=== PATIENT | female | born 1975 | race African-American/Black ===

== ENCOUNTER 2019-02-17 08:13 | Emergency (ER) | payer OTHER ==
[2019-02-17] MEDS ORDERED: KETOROLAC 30 MG/ML INJ ONE (08:37)
[2019-02-17] MEDS ORDERED: ONDANSETRON 4 MG/2 ML VIAL ONE (08:37)
[2019-02-17] MEDS ORDERED: MORPHINE 4 MG/ML SYR ONE ×2 (08:37→10:19)
[2019-02-17] MEDS ORDERED: NA CHLORIDE 0.9% 1,000 ML ONE (08:38)
[2019-02-17 09:12] LABS: Absolute Lymphocytes (CBC) 2.6 K/uL (0.7-4.9); Basophils % 0.6 % (0-1.3); Hematocrit 36.5 % (36.0-45.0); MPV 9.2 fL (7.6-11.3); RBC Red Blood Cell Count 4.17 M/uL (3.86-4.86)
--- NOTE | 2019-02-17 09:14 | RAD REPORT ---
EXAM DESCRIPTION: CT - Stone Protocol - 02/17/2019 8:58 am CLINICAL HISTORY: Abdominal pain. COMPARISON: None. TECHNIQUE: Computed axial tomography of the abdomen pelvis was obtained without oral or IV contrast. Lack of IV and oral contrast limits evaluation of solid organs, bowel, and vessels. Coronal reformat derek images were obtained and reviewed. All CT scans are performed using dose optimization technique as appropriate and may include automated exposure control or mA/KV adjustment according to patient size. FINDINGS: A renal calculus is not seen. An ureteral calculus is not noted. A bladder calculus is not present. The liver, spleen, pancreas and adrenals appear grossly normal There is no evidence of diverticulitis. The appendix appears normal Hysterectomy. Small umbilical hernia A 23 millimeter left ovarian cyst with small amount of free fluid Moderate amount of stool within the colon IMPRESSION: Negative for a genitourinary calculus A 23 millimeter left ovarian cyst with small amount of free fluid
--- NOTE | 2019-02-17 09:22 | ER ---
Nurse's Notes [facility] Name: Rhett Phillips Age: 43 yrs Sex: Female : 1975 Arrival Date: 02/17/2019 Time: 08:15 Bed 7 Private MD: Unknown, Unknown Diagnosis: Other ovarian cysts-23 mm left;Pelvic and perineal pain;Hypokalemia Presentation: 02/17 08:28 Presenting complaint: Patient states: LLQ pain and nausea, denies vomiting or diarrhea. ph Transition of care: patient was not received from another setting of care. Onset of symptoms was February 17, 2019. Risk Assessment: Do you want to hurt yourself or someone else? Patient reports no desire to harm self or others. Initial Sepsis Screen: Does the patient meet any 2 criteria? No. Patient's initial sepsis screen is negative. Does the patient have a suspected source of infection? No. Patient's initial sepsis screen is negative. Care prior to arrival: None. 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 - Social history:: Smoking status: Patient/guardian denies using tobacco. - Ebola Screening: : No symptoms or risks identified at this time. - Family history:: not pertinent. Screenin:30 Abuse screen: Denies threats or abuse. Denies injuries from another. Nutritional ph screening: No deficits noted. Tuberculosis screening: No symptoms or risk factors identified. Fall Risk None identified. Assessment: 08:30 General: Appears in no apparent distress. uncomfortable, slender, well groomed, ph Behavior is calm, cooperative, appropriate for age. Pain: Complains of pain in left lower quadrant. Neuro: Level of Consciousness is awake, alert, obeys commands, Oriented to person, place, time, situation. Cardiovascular: Capillary refill < 3 seconds in bilateral fingers Patient's skin is warm and dry. Respiratory: Airway is patent Respiratory effort is even, unlabored, Respiratory pattern is regular, symmetrical. GI: Abdomen is flat, non-distended, Reports lower abdominal pain, nausea. Derm: Skin is intact, is healthy with good turgor, Skin is pink, warm \T\ dry. Musculoskeletal: Circulation, motion, and sensation intact. Range of motion: intact in all extremities. 09:32 Reassessment: Patient appears in no apparent distress at this time. orders received for sg US and discharge, pt to wait in the dept for ultrasound prior to dc to home. 10:30 Reassessment: Patient appears in no apparent distress at this time. Patient and/or ph family updated on plan of care and expected duration. Pain level reassessed. Patient is alert, oriented x 3, equal unlabored respirations, skin warm/dry/pink. Pt resting comfortably, d/c pending US results, family at bedside. 11:51 Reassessment: Patient appears in no apparent distress at this time. Patient and/or ph family updated on plan of care and expected duration. Pain level reassessed. Patient is alert, oriented x 3, equal unlabored respirations, skin warm/dry/pink. Pt d/c home w/ family. Vital Signs: 08:29 BP 142 / 92; Pulse 92; Resp 18; Temp 98.0; Pulse Ox 100% on R/A; Weight 61.23 kg; ph 09:44 BP 121 / 71; Pulse 54; Resp 18; Pulse Ox 100% on R/A; Pain 6/10; ph 11:00 BP 118 / 78; Pulse 56; Resp 18; Pulse Ox 99% on R/A; ph 11:55 BP 127 / 89; Pulse 55; Resp 16; Temp 97.9; Pulse Ox 99% on R/A; ph ED Course: 08:15 Patient arrived in ED. ag5 08:15 Unknown, Unknown is Private Physician. ag5 08:17 Fabio Blankenship MD is Attending Physician. mckenzie 08:28 Nayeli Lopez, YADIRA is Primary Nurse. ph 08:29 Triage completed. ph 08:30 Patient has correct armband on for positive identification. Placed in gown. Bed in low ph position. Call light in reach. Side rails up X 1. Pulse ox on. NIBP on. Door closed. Noise minimized. Warm blanket given. 08:30 Arm band placed on Patient placed in an exam room, on a stretcher. ph 08:58 CT Stone Protocol In Process Unspecified. EDMS 09:20 Karissa Watt MD is Referral Physician. mckenzie 09:25 Lab(s) recollected, by me, sent to lab. sg 11:04 Transvaginal Study (probe) In Process Unspecified. EDMS 11:54 No provider procedures requiring assistance completed. IV discontinued, intact, ph bleeding controlled, No redness/swelling at site. Pressure dressing applied. Administered Medications: 08:44 Drug: NS 0.9% 1000 ml Route: IV; Rate: 1 bolus; Site: right antecubital; ph 11:55 Follow up: Response: No adverse reaction; IV Status: Completed infusion; IV Intake: ph 1000ml 08:44 Drug: Zofran 4 mg Route: IVP; Site: right antecubital; ph 09:01 Follow up: Response: No adverse reaction; Nausea is decreased ph 08:45 Drug: TORadol 30 mg Route: IVP; Site: right antecubital; ph 09:01 Follow up: Response: No adverse reaction; Pain is decreased ph 08:45 Drug: morphine 4 mg Route: IVP; Site: right antecubital; ph 09:01 Follow up: Response: No adverse reaction; Pain is decreased; RASS: Alert and Calm (0) ph 10:25 Drug: morphine 4 mg {Note: initial RASS 0.} Route: IVP; Site: right antecubital; ph 11:00 Follow up: Response: No adverse reaction; Pain is decreased; RASS: Alert and Calm (0) ph 11:38 Drug: Potassium Effervescent Tablet 25 mEq Route: PO; ph 11:55 Follow up: Response: No adverse reaction ph Intake: 11:55 IV: 1000ml; Total: 1000ml. ph Outcome: 09:22 Discharge ordered by . mckenzie 11:54 Discharged to home via wheelchair, with family. ph 11:54 Condition: good 11:54 Discharge instructions given to patient, family, Instructed on discharge instructions, follow up and referral plans. medication usage, Demonstrated understanding of instructions, follow-up care, medications, Prescriptions given X 2. 11:56 Patient left the ED. ph Signatures: Dispatcher [employer] EDHI Bonilla, Sj, RN RN sg Krzysztof, Fabio, MD MD mckenzie Lopez, Nayeli, RN RN ph Rosalina, Ajare ag5
--- NOTE | 2019-02-17 09:23 | EDPHYS ---
Physician Documentation [facility] Name: Rhett Phillips Age: 43 yrs Sex: Female : 1975 Arrival Date: 02/17/2019 Time: 08:15 Bed 7 Private MD: Unknown, Unknown ED Physician Fabio Blankenship HPI: 02/17 08:30 This 43 yrs old Black Female presents to ER via Ambulatory with complaints of Side Pain.mckenzie 08:30 The patient presents with abdominal pain in the upper abdomen, in the lower abdomen. mckenzie Onset: The symptoms/episode began/occurred just prior to arrival. The patient complains of pain in the left low back and left mid back. The pain radiates to the left low back and left mid back. Onset: The symptoms/episode began/occurred just prior to arrival. Modifying factors: The symptoms are alleviated by nothing. the symptoms are aggravated by nothing. Associated signs and symptoms: The patient has no apparent associated signs or symptoms. Associated signs and symptoms: none. 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 - Social history:: Smoking status: Patient/guardian denies using tobacco. - Ebola Screening: : No symptoms or risks identified at this time. - Family history:: not pertinent. ROS: 08:30 Constitutional: Negative for fever, chills, and weight loss, Eyes: Negative for injury, mckenzie pain, redness, and discharge, ENT: Negative for injury, pain, and discharge, Neck: Negative for injury, pain, and swelling, Cardiovascular: Negative for chest pain, palpitations, and edema, Respiratory: Negative for shortness of breath, cough, wheezing, and pleuritic chest pain, : Negative for injury, bleeding, discharge, and swelling, MS/Extremity: Negative for injury and deformity, Skin: Negative for injury, rash, and discoloration, Neuro: Negative for headache, weakness, numbness, tingling, and seizure, Psych: Negative for depression, anxiety, suicide ideation, homicidal ideation, and hallucinations, Allergy/Immunology: Negative for hives, rash, and allergies, Endocrine: Negative for neck swelling, polydipsia, polyuria, polyphagia, and marked weight changes, Hematologic/Lymphatic: Negative for swollen nodes, abnormal bleeding, and unusual bruising. 08:30 Abdomen/GI: Positive for abdominal pain, of the posterior aspect of left lateral abdomen, left upper quadrant and left lower quadrant. Exam: 08:30 Constitutional: This is a well developed, well nourished patient who is awake, alert, mckenzie and in no acute distress. Head/Face: Normocephalic, atraumatic. Eyes: Pupils equal round and reactive to light, extra-ocular motions intact. Lids and lashes normal. Conjunctiva and sclera are non-icteric and not injected. Cornea within normal limits. Periorbital areas with no swelling, redness, or edema. ENT: Nares patent. No nasal discharge, no septal abnormalities noted. Tympanic membranes are normal and external auditory canals are clear. Oropharynx with no redness, swelling, or masses, exudates, or evidence of obstruction, uvula midline. Mucous membranes moist. Neck: Trachea midline, no thyromegaly or masses palpated, and no cervical lymphadenopathy. Supple, full range of motion without nuchal rigidity, or vertebral point tenderness. No Meningismus. Chest/axilla: Normal chest wall appearance and motion. Nontender with no deformity. No lesions are appreciated. Cardiovascular: Regular rate and rhythm with a normal S1 and S2. No gallops, murmurs, or rubs. Normal PMI, no JVD. No pulse deficits. Respiratory: Lungs have equal breath sounds bilaterally, clear to auscultation and percussion. No rales, rhonchi or wheezes noted. No increased work of breathing, no retractions or nasal flaring. Abdomen/GI: Soft, non-tender, with normal bowel sounds. No distension or tympany. No guarding or rebound. No evidence of tenderness throughout. Back: No spinal tenderness. No costovertebral tenderness. Full range of motion. Skin: Warm, dry with normal turgor. Normal color with no rashes, no lesions, and no evidence of cellulitis. MS/ Extremity: Pulses equal, no cyanosis. Neurovascular intact. Full, normal range of motion. Neuro: Awake and alert, GCS 15, oriented to person, place, time, and situation. Cranial nerves II-XII grossly intact. Motor strength 5/5 in all extremities. Sensory grossly intact. Cerebellar exam normal. Normal gait. Psych: Awake, alert, with orientation to person, place and time. Behavior, mood, and affect are within normal limits. Vital Signs: 08:29 BP 142 / 92; Pulse 92; Resp 18; Temp 98.0; Pulse Ox 100% on R/A; Weight 61.23 kg; ph 09:44 BP 121 / 71; Pulse 54; Resp 18; Pulse Ox 100% on R/A; Pain 6/10; ph 11:00 BP 118 / 78; Pulse 56; Resp 18; Pulse Ox 99% on R/A; ph 11:55 BP 127 / 89; Pulse 55; Resp 16; Temp 97.9; Pulse Ox 99% on R/A; ph MDM: 08:18 Patient medically screened. [facility] 08:34 Data reviewed: vital signs, nurses notes, lab test result(s), radiologic studies, CT mckenzie scan. 02/17 08:29 Order name: Basic Metabolic Panel; Complete Time: 10:48 [facility] 02/17 08:29 Order name: CBC with Diff; Complete Time: 09:19 [facility] 02/17 08:29 Order name: Creatinine for Radiology; Complete Time: 09:47 [facility] 02/17 08:29 Order name: Hepatic Function; Complete Time: 10:48 [facility] 02/17 08:29 Order name: Lipase; Complete Time: 10:48 [facility] 02/17 08:29 Order name: Urine Culture [facility] 02/17 08:29 Order name: CT Stone Protocol; Complete Time: 09:19 [facility] 02/17 09:22 Order name: Urine Dipstick--Ancillary (enter results); Complete Time: 09:31 em1 02/17 09:23 Order name: Transvaginal Study (probe) [facility] 02/17 08:29 Order name: IV Saline Lock; Complete Time: 09:01 [facility] 02/17 08:29 Order name: Labs collected and sent; Complete Time: 09:01 [facility] 02/17 08:29 Order name: Urine Dipstick-Ancillary (obtain specimen); Complete Time: 09:21 [facility] Administered Medications: 08:44 Drug: NS 0.9% 1000 ml Route: IV; Rate: 1 bolus; Site: right antecubital; ph 11:55 Follow up: Response: No adverse reaction; IV Status: Completed infusion; IV Intake: ph 1000ml 08:44 Drug: Zofran 4 mg Route: IVP; Site: right antecubital; ph 09:01 Follow up: Response: No adverse reaction; Nausea is decreased ph 08:45 Drug: TORadol 30 mg Route: IVP; Site: right antecubital; ph 09:01 Follow up: Response: No adverse reaction; Pain is decreased ph 08:45 Drug: morphine 4 mg Route: IVP; Site: right antecubital; ph 09:01 Follow up: Response: No adverse reaction; Pain is decreased; RASS: Alert and Calm (0) ph 10:25 Drug: morphine 4 mg {Note: initial RASS 0.} Route: IVP; Site: right antecubital; ph 11:00 Follow up: Response: No adverse reaction; Pain is decreased; RASS: Alert and Calm (0) ph 11:38 Drug: Potassium Effervescent Tablet 25 mEq Route: PO; ph 11:55 Follow up: Response: No adverse reaction ph Disposition: 02/17/19 09:22 Discharged to Home. Impression: Other ovarian cysts - 23 mm left, Pelvic and perineal pain, Hypokalemia. - Condition is Stable. - Discharge Instructions: Ovarian Cyst, Pelvic Pain, Female, Pelvic Pain, Female, Anmi-le-Pelw, Ovarian Cyst, Xndj-[id number]. - Prescriptions for Ibuprofen 600 mg Oral Tablet - take 1 tablet by ORAL route every 6 hours As needed take with food; 20 tablet. Tylenol- Codeine #3 300-30 mg Oral Tablet - take 2 tablets by ORAL route every 6 hours As needed; 26 tablet. - Medication Reconciliation Form, Thank You Letter, Antibiotic Education, Prescription Opioid Use, Work release form form. - Follow up: Private Physician; When: 2 - 3 days; Reason: Recheck today's complaints, Continuance of care, Re-evaluation by your physician. Follow up: Karissa Watt MD; When: 2 - 3 days; Reason: Recheck today's complaints, Re-evaluation by your physician. - Problem is new. - Symptoms have improved. Signatures: Dispatcher [employer] Fabio Ennis MD MD cha Hall, Patricia, RN RN ph Corrections: (The following items were deleted from the chart) 10:49 09:22 02/17/2019 09:22 Discharged to Home. Impression: Other ovarian cysts - 23 mm mckenzie left; Pelvic and perineal pain. Condition is Stable. Forms are Medication Reconciliation Form, Thank You Letter, Antibiotic Education, Prescription Opioid Use. Follow up: Private Physician; When: 2 - 3 days; Reason: Recheck today's complaints, Continuance of care, Re-evaluation by your physician. Follow up: Karissa Watt; When: 2 - 3 days; Reason: Recheck today's complaints, Re-evaluation by your physician. Problem is new. Symptoms have improved. mckenzie 11:56 10:49 02/17/2019 09:22 Discharged to Home. Impression: Other ovarian cysts - 23 mm ph left; Pelvic and perineal pain; Hypokalemia. Condition is Stable. Discharge Instructions: Ovarian Cyst, Pelvic Pain, Female, Pelvic Pain, Female, Usck-rt-[id number], Ovarian Cyst, [id number]-ay-[id number]. Prescriptions for Ibuprofen 600 mg Oral Tablet - take 1 tablet by ORAL route every 6 hours As needed take with food; 20 tablet, Tylenol-Codeine #3 300-30 mg Oral Tablet - take 2 tablets by ORAL route every 6 hours As needed; 26 tablet. and Forms are Medication Reconciliation Form, Thank You Letter, Antibiotic Education, Prescription Opioid Use. Follow up: Private Physician; When: 2 - 3 days; Reason: Recheck today's complaints, Continuance of care, Re-evaluation by your physician. Follow up: Karissa Watt; When: 2 - 3 days; Reason: Recheck today's complaints, Re-evaluation by your physician. Problem is new. Symptoms have improved. mckenzie
[2019-02-17 09:24] LABS: Urine Blood TRACE (NEG); Urine Glucose NEGATIVE (NEG); Urine Protein NEGATIVE (NEG); Urine Specific Gravity 1.015 (1.005-1.030); Urine pH 8.5 (5.0-7.0)
[2019-02-17 09:54] LABS: Albumin 3.5 g/dL (3.4-5.0); Bilirubin Direct 0.2 mg/dL (0-0.2); Bilirubin Total 0.6 mg/dL (0.2-1.0); Potassium 3.3 mmol/L (3.5-5.1); Protein, Total 7.1 g/dL (6.4-8.2)
[2019-02-17] MEDS ORDERED: POTASSIUM CL SA 10 MEQ TAB PO ONE (11:25)
--- NOTE | 2019-02-17 11:43 | RAD REPORT ---
EXAM DESCRIPTION: US - Transvaginal Study Probe - 02/17/2019 10:55 am CLINICAL HISTORY: Left-sided pelvic pain, partial hysterectomy COMPARISON: Noncontrast CT abdomen and pelvis February 17 TECHNIQUE: Endovaginal sonography performed. Preliminary findings provided at the time of the study. FINDINGS: Right ovary is normal in size. Doppler evaluation shows normal blood flow in the ovarian s troma on the right. No dominant solid or cystic right adnexal finding. No free fluid seen. The uterus is absent. Left ovaries identified and contains a few small cysts or follicles. There is an additional irregular ly-shaped 2 centimeter fluid collection that is probably an involuting cyst. No abnormal septation or calcification. Doppler evaluation could not clearly identify blood flow in the left ovary. Small ministerio unt of free fluid is present adjacent to the left ovary. While blood flow is not confirmed in the ovary. Torsion would be on likely. Torsion is generally asso ciated with a dominant solid or cystic mass that causes ovarian rotation. IMPRESSION: A 2 centimeter ruptured or involuting left ovarian cyst is identified. This may explain small amount of free fluid in the left adnexum. Doppler evaluation could not confirm blood flow in the left ovary. Well torsion cannot be excluded, o varian torsion is generally associated with the dominant mass that causes ovarian rotation. Correlati on is needed with clinical presentation. The right ovary was identified and show normal blood flow on Doppler evaluation. No suspicious right ovarian or right adnexal finding. Uterus is surgically absent.
[2019-02-17 12:15] VITALS: O2SAT 99
[2019-02-17 12:16] VITALS: BP 127/89; TEMP 97.9
== END 2019-02-17 11:56 | disposition home or self-care (01) ==
LOC: ER 08:13
DX: N83.202 Unspecified ovarian cyst, left side (principal); R10.2 Pelvic and perineal pain; E87.6 Hypokalemia
CPT/HCPCS: 96361; 87088; 85025; 87086; 80048; 36415; 80076; 81003; 83690; 76377; 74176; 76830; 96375; 96374; 99284; J7030; J2405

== ENCOUNTER 2022-08-05 06:53 | Day surgery (SDC) | payer BC ==
[2022-08-05] MEDS ORDERED: Ringers Lactate 1,000 ML IV ONE (07:50)
[2022-08-05] MEDS ORDERED: propofoL 200 MG/20 ML VIAL IV ONE (08:32)
[2022-08-05] MEDS ORDERED: LIDOCAINE VISCOUS 2% SOLN 15 ML UDC ONE (08:32)
[2022-08-05 09:26] VITALS: O2SAT 100
[2022-08-05 09:29] VITALS: BP 111/75; TEMP 97.3
--- NOTE | 2022-08-05 10:25 | RAD REPORT ---
EXAM DESCRIPTION: US - Abdomen Exam Complete - 08/05/2022 9:56 am CLINICAL HISTORY: Abdominal pain COMPARISON: 2021 FINDINGS: The liver has a normal echotexture. A gallstone is not seen. The gallbladder wall is not thickened. The biliary tree is normal caliber. The pancreas is normal in size and echotexture The right kidney measures 8 centimeters with a normal echotexture. The left kidney measures 8 centimeters with a normal echotexture. The spleen measures 8 centimeters. Abdominal aorta/IVC do not demonstrate a significant abnormality IMPRESSION: No significant abnormality is displayed
--- NOTE | 2022-08-05 12:28 | RAD REPORT ---
EXAM DESCRIPTION: NM - Hepatobiliary System W/ Ph - 08/05/2022 12:22 pm CLINICAL HISTORY: Abdominal pain TECHNIQUE: The patient was administered 6.2 millicuries technetium Choletec intravenous and images o f the abdomen obtained for 45 minutes. Patient was given 1.3 micrograms Kinevac intravenously and thompson ges of the gallbladder obtained for 30 minutes FINDINGS: Liver demonstrates prompt radiotracer uptake. Activity is seen within the gallbladder by 20 minutes After the administration of cck gallbladder ejection fraction equals 17% (normal values greater than 35% Uptake is seen within small bowel. Patient was asymptomatic prior and during the administration of CCK IMPRESSION: No evidence of acute cholecystitis Diminished gallbladder ejection fraction 70% may indicate biliary dyskinesis
== END 2022-08-05 09:10 | disposition home or self-care (01) ==
LOC: OR 06:53
PROVIDERS: ATTEND Internal Medicine Gastroenterology
PROC: 0DB68ZX Excision of Stomach, Via Natural or Artificial Opening Endoscopic, Diagnostic (ICD-10-PCS; 2022-08-05)
PROC: 0DB58ZX Excision of Esophagus, Via Natural or Artificial Opening Endoscopic, Diagnostic (ICD-10-PCS; principal; 2022-08-05 08:45)
DX: K21.00 Gastro-esophageal reflux disease with esophagitis, without bleeding (principal); K29.50 Unspecified chronic gastritis without bleeding; R10.12 Left upper quadrant pain; R13.10 Dysphagia, unspecified; K21.9 Gastro-esophageal reflux disease without esophagitis; R11.2 Nausea with vomiting, unspecified; R68.81 Early satiety; R14.2 Eructation
CPT/HCPCS: 88312; 88305; 76700; 78227; 43239; J2704; J7120; J2805; A9537

== ENCOUNTER 2022-08-21 07:45 | Day surgery (SDC) | payer BC ==
[2022-08-20 15:31] LABS: Absolute Lymphocytes (CBC) 2.5 K/uL (0.7-4.9); Hematocrit 37.6 % (36.0-45.0); Lymphocytes % 53.1 % (15.3-44.8); MCV 87.3 fL (80-100); MPV 8.5 fL (7.6-11.3)
--- NOTE | 2022-08-20 15:51 | RAD REPORT ---
EXAM DESCRIPTION: RAD - Chest Single View - 08/20/2022 3:45 pm CLINICAL HISTORY: PRE-OP Chest pain. COMPARISON: <Comparisons> FINDINGS: Portable technique limits examination quality. The lungs are grossly clear. The heart is normal in size. No displaced fractures. IMPRESSION: Negative study.
[2022-08-20 16:00] LABS: Potassium 3.4 mEq/L (3.5-5.1)
[2022-08-21] MEDS ORDERED: CEFOXITIN SODIUM 1 GM/VIAL ONE (08:10)
[2022-08-21] MEDS ORDERED: Ringers Lactate 1,000 ML IV ONE ×2 (08:10→10:30)
[2022-08-21] MEDS ORDERED: FENTANYL CITR 100 MCG/2 ML ONE (08:26)
[2022-08-21] MEDS ORDERED: LIDOCAINE 2% MPF 5 ML VIAL ONE (08:27)
[2022-08-21] MEDS ORDERED: propofoL 200 MG/20 ML VIAL IV ONE (08:27)
[2022-08-21] MEDS ORDERED: MIDAZOLAM HCL 2 MG/2 ML INJ ONE (08:28)
[2022-08-21] MEDS ORDERED: ONDANSETRON 4 MG/2 ML VIAL ONE (08:29)
[2022-08-21] MEDS ORDERED: ROCURONIUM 50 MG/5 ML VIAL IV ONE (08:34)
[2022-08-21] MEDS ORDERED: GLYCOPYRROLATE 0.2 MG/ML SYR ONE (08:35)
[2022-08-21] MEDS ORDERED: NEOSTIGMINE 1 MG/ML -10 ML VIAL ONE (08:36)
[2022-08-21] MEDS ORDERED: Mastisol Adhesive Liq ONE ×2 (08:37→10:03)
[2022-08-21] MEDS ORDERED: BUPIVACAINE 0.5% PF 10 ML VIAL ONE (08:55)
[2022-08-21] MEDS ORDERED: dexAMETHasone 4 MG/ML VIAL ONE (09:25)
[2022-08-21] MEDS ORDERED: dexAMETHasone 10 MG/ML VIAL ONE (09:33)
[2022-08-21] MEDS ORDERED: HYDROCODONE/APAP 7.5/325 MG TAB PO PRN (09:53)
--- NOTE | 2022-08-21 09:58 | P.OP ---
Date of Service: 08/21/22 Preop diagnosis: Chronic cholecystitis, biliary dyskinesia Postop diagnosis: Same, adhesions Procedure performed: Laparoscopic cholecystectomy, lysis of adhesions Surgeon: Mich Hicks MD Recordings Librarian: Jackelyn LOPEZ Estimated blood loss: Minimal Specimen: Gallbladder Findings: As above Anesthesia: General Complications: None Drains: None Fluids and blood products: Nonapplicable Disposition: Recovery room Operative note: Patient brought to the OR and placed in the supine position. General anesthesia begun. Patient prepped and draped in the usual sterile fashion. Marcaine 0.5% infiltrated locally. 15 blade used to make a 1 cm supraumbilical midline incision. Subcutaneous tissue divided. Bleeding controlled cautery. Fascia identified and divided. #1 Vicryl stay suture placed. Peritoneal cavity entered with sharp and blunt dissection. 12 mm trocar placed into the peritoneal cavity under direct vision. Pneumoperitoneum established. Three 5 mm trocars placed under direct vision. The first trocar placed in the epigastric region just to the right of midline. 2 trocars placed in the right subcostal region. Laparoscopy revealed chronic inflammation of the gallbladder with extensive adhesions to the body and infundibulum of the gallbladder. Sharp and blunt dissection utilized to take the adhesions down. Fundus of the gallbladder was then identified and retracted superiorly. Infundibulum was retracted inferolaterally. Cystic duct and cystic artery were clearly identified with blunt dissection. Clips placed and both structures divided. Gallbladder removed from the liver bed utilizing cautery. Bleeding on the liver bed controlled with cautery. Gallbladder retrieved through the umbilicus via Endo Catch bag. Right upper quadrant examined. There was no evidence of bleeding or bile leakage appreciated. Subsequently, all trocars removed under direct vision. Stay sutures tied to each other to reapproximate the fascial defect. Subcutaneous wounds irrigated. Bleeding controlled cautery. 3-0 chromic used to reapproximate subcutaneous tissue and close skin. Sterile dressing applied. Patient awakened and taken to recovery room in good general condition. CC: Dr. Flores's office
[2022-08-21] MEDS: HYDROMORPHONE HCL 1 MG/ML INJ ONE ×3 (10:20→10:36)
[2022-08-21] MEDS ORDERED: HYDROMORPHONE HCL 1 MG/ML INJ ONE (10:44)
[2022-08-21 11:30] VITALS: BP 115/70; TEMP 97; O2SAT 96
--- NOTE | 2022-08-21 14:18 | EKG ---
Test Date: 2022-08-20 Test Time: 15:05:07 Internal Control Manager: ETHAN MEASUREMENT RESULTS: Intervals: Rate: 44 NC: 166 QRSD: 76 QT: 432 QTc: 369 [place]: P: 62 NC: 166 QRS: 59 T: 24 INTERPRETIVE STATEMENTS: Marked sinus bradycardia Abnormal ECG Compared to ECG 10/14/2009 15:11:38 Sinus rhythm no longer present Sinus arrhythmia no longer present Electronically Signed On 08-21-22 14:16:08 CDT by Scott Gary
== END 2022-08-21 12:20 | disposition home or self-care (01) ==
LOC: OR 07:45
PROVIDERS: ATTEND Surgery
PROC: 0FN44ZZ Release Gallbladder, Percutaneous Endoscopic Approach (ICD-10-PCS; 2022-08-21)
PROC: 0FT44ZZ Resection of Gallbladder, Percutaneous Endoscopic Approach (ICD-10-PCS; principal; 2022-08-21 09:00)
DX: K81.1 Chronic cholecystitis (principal); K82.8 Other specified diseases of gallbladder
CPT/HCPCS: 93005; 85025; 80048; 36415; 88304; 71045; 47562; 47579; J2704; J1100 ×2; J2710; J2001; J2250; J3010; J1170 ×2; J0694; J2405; J7120 ×2